=== PATIENT | male | born 1995 | race Caucasian/White ===

== ENCOUNTER 2017-09-23 08:44 | Emergency (ER) | payer MEDICAID, OTHER ==
[~2017-09-23] VITALS: Ht 170.2 cm; Wt 60.8 kg
[2017-09-23] MEDS ORDERED: ONDANSETRON HCL/PF 4 MG/2 ML VIAL ONE (09:12)
[2017-09-23] MEDS ORDERED: DICYCLOMINE HCL 10 MG CAPSULE PO ONE ×2 (09:12→09:30)
[2017-09-23] MEDS ORDERED: KETOROLAC TROMETHAMINE 15 MG/ML VIAL ONE (09:12)
[2017-09-23] MEDS ORDERED: IV NS 0.9% 1,000 ML BAG IV ONE (09:30)
[2017-09-23] MEDS ORDERED: ONDANSETRON HCL/PF 4 MG/2 ML VIAL IVP ONE (09:30)
[2017-09-23] MEDS ORDERED: KETOROLAC TROMETHAMINE INJ 30 MG/ML VIAL IV ONE (09:30)
[2017-09-23 09:33] LABS: APPEARANCE,URINE Clear (CLEAR); BILIRUBIN,URINE Negative (NEGATIVE); BLOOD, URINE Negative Ery/uL (NEGATIVE); COLOR,URINE Yellow (YELLOW); KETONES,URINE Negative (NEGATIVE); LEUKOCYTE ESTERASE ,URINE Negative (NEGATIVE); NITRITE, URINE Negative (NEGATIVE); PROTEIN,URINE Negative (NEGATIVE); UGLUCOSE Negative (NEGATIVE); UROBILINOGEN,URINE 0.2 EU/dL (0.2)
--- NOTE | 2017-09-23 10:14 | NUR ---
IV removed. Catheter intact and site benign. Pressure and 4x4 applied to site. No bleeding noted.
--- NOTE | 2017-09-23 10:22 | NUR ---
Patient discharged to home in stable condition. Written and verbal after care instructions given. Patient verbalizes understanding of instruction.
[2017-09-23 10:27] VITALS: BP 124/76
== END 2017-09-23 10:27 | disposition home or self-care (01) ==
LOC: ER 08:50
DX: R19.7 Diarrhea, unspecified (principal); R10.84 Generalized abdominal pain
CPT/HCPCS: 81000-TC; A4606; J1885; J2405; J7030; Z7610